=== PATIENT | female | born 1975 | race Caucasian/White ===

== ENCOUNTER 2016-08-17 16:13 | Emergency (ER) | payer OTHER ==
[~2016-08-17] VITALS: Ht 152.4 cm; Wt 66.0 kg
[~2016-08-17 16:13] MED LIST: BENA25TA8 PO; BUPR100CR PO; BUSP30TA PO; EFFE75CA PO; GABA600T PO; HYDR-3533 PO; PROT40TA PO; SUCR1S PO
[2016-08-17 16:19] VITALS: BP 147/71; PULSE 109; RESP 21; TEMP 98.1; O2SAT 99
[2016-08-17] MEDS ORDERED: PROT40TA PO (16:38)
[2016-08-17] MEDS ORDERED: LORA-474 PO (16:38)
[2016-08-17] MEDS ORDERED: EFFE150C PO (16:38)
[2016-08-17] MEDS ORDERED: CARA1TAB6 PO (16:38)
[2016-08-17] MEDS ORDERED: GABA800T PO (16:38)
[2016-08-17] MEDS ORDERED: BUSP30TA PO (16:38)
[2016-08-17] MEDS ORDERED: ONDANSETRON ODT 4 MG TAB PO ONE (17:00)
[2016-08-17] MEDS ORDERED: MORPHINE SULFATE 4 MG/ML INJ IM ONE (17:00)
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
[2016-08-17] MEDS ORDERED: ROBA750T PO (18:26)
[2016-08-17] MEDS ORDERED: TRAM50TA PO (18:29)
== END 2016-08-17 18:56 | disposition home or self-care (01) ==
LOC: NEPB 16:13
DX: S16.1XXA Strain of muscle, fascia and tendon at neck level, initial encounter (principal); S60.211A Contusion of right wrist, initial encounter; S60.819A Abrasion of unspecified wrist, initial encounter; S20.219A Contusion of unspecified front wall of thorax, initial encounter; M54.9 Dorsalgia, unspecified; V43.52XA Car driver injured in collision with other type car in traffic accident, initial encounter; Y93.9 Activity, unspecified; Y92.9 Unspecified place or not applicable; Y99.9 Unspecified external cause status
CPT/HCPCS: 70450; 71010; 72072; 72100; 72125; 73110; 96372; 99284; J2270

== ENCOUNTER 2016-08-27 10:47 | Emergency (ER) | payer OTHER ==
[~2016-08-27] VITALS: Ht 149.9 cm; Wt 633.0 kg
[~2016-08-27 10:47] MED LIST changes: -BENA25TA8 PO; -BUPR100CR PO; +CARA1TAB6 PO; +EFFE150C PO; -EFFE75CA PO; -GABA600T PO; +GABA800T PO; -HYDR-3533 PO; +LORA-474 PO; +ROBA750T PO; -SUCR1S PO; +TRAM50TA PO
[2016-08-27 11:05] VITALS: BP 137/94; PULSE 80; RESP 16; TEMP 98.5; O2SAT 99
[2016-08-27] MEDS ORDERED: SUMA100T2 PO (11:48)
[2016-08-27] MEDS ORDERED: HYDR-3516 PO (11:48)
[2016-08-27] MEDS ORDERED: SODIUM CHLOR 0.9% 1000 ML INJ 1,000 ML IV SCH (11:58)
[2016-08-27] MEDS ORDERED: MORPHINE SULFATE 4 MG/ML INJ IV PUSH ONE ×2 (12:00→13:30)
[2016-08-27] MEDS ORDERED: ONDANSETRON HCL 4 MG/2 ML VIAL IVP ONE (12:00)
[2016-08-27] MEDS ORDERED: SODIUM CHLORIDE 0.9% FLUSH 5 ML FLUSH IVF PRN (12:00)
[2016-08-27 12:09] LABS: BLOOD, URINE NEG (NEG); GLUCOSE,URINE NEG (NEG); KETONE, URINE TRACE mg/dL (NEG); NITRITE,URINE NEG (NEG); PH, URINE 6.5 (5.0-8.5)
[2016-08-27 12:11] LABS: METHOD OF COLLECTION CLEAN CATCH; URINE COLOR YELLOW (YELLW/STRAW)
[2016-08-27 12:13] LABS: BACTERIA, URINE MOD /hpf; COMMENT (UR) CULTURE INDICATED; COMMENT2 (UR) MUCOUS PRESENT; CULTURE IF INDICATED CULTURE INDICATED; WBC, URINE 0-2 /hpf (0-5)
[2016-08-27 12:42] VITALS: BP 140/72; PULSE 79; RESP 16; RESP 18; O2SAT 100; O2SAT 99
[2016-08-27 12:48] LABS: AUTOMATED NEUTROPHIL # 5.1 TH/MM3 (1.8-7.7); BASOPHIL # 0.3 TH/MM3 (0-0.2); BASOPHIL % 3.5 % (0.0-2.0); EOSINOPHIL # 0.1 TH/MM3 (0-0.4); EOSINOPHIL % 0.6 % (0.0-4.0); HEMATOCRIT 44.7 % (35.0-46.0); HEMO FLAGS DIFF FINAL; LYMPH % 25.1 % (9.0-44.0); LYMPHOCYTE # 2.2 TH/MM3 (1.0-4.8); MEAN CELL VOLUME 83.8 FL (80.0-100.0); MEAN CORPUSCULAR HEMOGLOBIN 28.1 PG (27.0-34.0); MEAN CORPUSCULAR HGB CONC 33.6 % (32.0-36.0); MONO % 10.9 % (0.0-8.0); NEUT % 59.9 % (16.0-70.0); PLATELET COUNT 412 TH/MM3 (150-450); RED BLOOD COUNT 5.33 MIL/MM3 (4.00-5.30); RED CELL DISTRIBUTION WIDTH 13.7 % (11.6-17.2); WHITE BLOOD COUNT 8.6 TH/MM3 (4.0-11.0)
[2016-08-27 12:53] LABS: CHLORIDE 106 MEQ/L (98-107); POTASSIUM 3.7 MEQ/L (3.5-5.1); SODIUM (NA) 145 MEQ/L (136-145)
[2016-08-27 12:57] LABS: ANION GAP 11 MEQ/L (5-15); BICARBONATE 28.4 MEQ/L (21.0-32.0); BLOOD UREA NITROGEN 11 MG/DL (7-18)
[2016-08-27 13:00] LABS: ALT (GPT) 15 U/L (10-53); AST (GOT) 9 U/L (15-37); GLOMERULAR FILTRATION RATE 100 ML/MIN (>89)
[2016-08-27 13:01] LABS: TOTAL BILIRUBIN ADULT 0.2 MG/DL (0.2-1.0)
[2016-08-27 13:02] LABS: ALKALINE PHOSPHATASE 43 U/L (45-117)
[2016-08-27] MEDS ORDERED: LORazepam 2 MG/ML VIAL IV PUSH ONE (13:30)
[2016-08-27 13:46] VITALS: BP 124/70; PULSE 88; RESP 16; O2SAT 98
--- NOTE | 2016-08-27 14:14 | PD ---
HPI Chief Complaint: Abdominal Pain Time Seen by Provider: 11:28 Travel History International Travel<30 days: No Contact w/Intl Traveler<30days: No Traveled to known affect area: No History of Present Illness HPI Patient is a 41-year-old female with a history of gastric sleeve as well as gastritis presents emergency Department with epigastric pain worsening over the past few months. Patient states she's followed by code official and was told that she has severe gastritis without any bleeding ulcers are also disease or mass. She states she has tried every unso-omb-pubybiv antacids was taken prescription antacids recently as well. States the pain is been gradually getting worse over the past few days but ultimately has been progressing for the past few months to year. Denies any blood in the emesis denies any blood in her stool. Denies any weight loss. Denies any fevers. States pain is sharp in quality. PFSH Past Medical History Anxiety: Yes Depression: Yes Diabetes: Yes (type 2) Patient Takes Glucophage: No Diminished Hearing: No Gastrointestinal Disorders: Yes (ALCOHOLIC GASTRITIS) Headaches: Yes Immunizations Current: Yes Migraines: Yes Tetanus Vaccination: > 5 Years ?: Not LMP: 08/20/16 Past Surgical History Abdominal Surgery: Yes (GASTRIC BAND) Cholecystectomy: Yes Other Surgery: Yes (BARIATRIC BREAST REDUCTION) Social History Alcohol Use: No (DENIES USE X 7 MONTHS (08/27/16)) Tobacco Use: No Substance Use: Yes (HX ETOH) Allergies-Medications (Allergen,Severity, Reaction): Coded Allergies: Penicillin (Unverified Allergy, Mild, rash, 08/27/16) Compazine (Unverified Allergy, Unknown, 08/27/16) Tetanus Toxoid (Verified Allergy, Unknown, 08/27/16) Nonsteroidal Anti-Inflammatory Agts (Verified Adverse Reaction, Severe, Gastritis, 08/27/16) Reported Meds & Prescriptions Reported Meds & Active Scripts Active [place] (Hydrocodone-Acetaminophen) 5-325 mg Tab 1 Tab PO Q8HR PRN Tramadol (Tramadol HCl) 50 Mg Tab 50 Mg PO Q6H PRN Reported Sumatriptan (Sumatriptan Succinate) 100 Mg Tab 100 Mg PO ONCE PRN If a satisfactory response has not been obtained at 2 hours, a second dose may be administered Hydrocodone-Acetaminophen 5-325 mg Tab 1 Tab PO Q6H PRN Gabapentin 800 Mg Tab 600 Mg PO TID Ativan (Lorazepam) 1 Mg Tab 1 Mg PO QID PRN Effexor XR 24 HR (Venlafaxine HCl) 150 Mg Cap 150 Mg PO DAILY Review of Systems Except as stated in HPI: all other systems reviewed are Neg Physical Exam Narrative GENERAL: Well-developed, well-nourished in mild discomfort. SKIN: Warm and dry. HEAD: Atraumatic. Normocephalic. EYES: Pupils equal and round. No scleral icterus. No injection or drainage. ENT: No nasal bleeding or discharge. Mucous membranes pink and moist. NECK: Trachea midline. No JVD. CARDIOVASCULAR: Regular rate and rhythm. No murmur appreciated. RESPIRATORY: No accessory muscle use. Clear to auscultation. Breath sounds equal bilaterally. GASTROINTESTINAL: Abdomen soft, non-tender, nondistended. Hepatic and splenic margins not palpable. Minimally tender in the epigastric area. No rebound no percussive tenderness. No tenderness at McBurney's point. Brice sign negative. Psoas obturator signs are negative. MUSCULOSKELETAL: No obvious deformities. No clubbing. No cyanosis. No edema. NEUROLOGICAL: Awake and alert. No obvious cranial nerve deficits. Motor grossly within normal limits. Normal speech. PSYCHIATRIC: Appropriate mood and affect; insight and judgment normal. Data Data Last Documented VS Orders Urinalysis - C+S If Indicated (08/27/16 11:29) Ed Urine Pregnancytest Poc (08/27/16 11:29) Complete Blood Count With Diff (08/27/16 11:58) Comprehensive Metabolic Panel (08/27/16 11:58) Lipase (08/27/16 11:58) Iv Access Insert/Monitor (08/27/16 11:58) Ecg Monitoring (08/27/16 11:58) Oximetry (08/27/16 11:58) Morphine Inj (Morphine Inj) (08/27/16 12:00) Ondansetron Inj (Zofran Inj) (08/27/16 12:00) Sodium Chlor 0.9% 1000 Ml Inj (Ns 1000 M (08/27/16 11:58) Sodium Chloride 0.9% Flush (Ns Flush) (08/27/16 12:00) Urine Culture (08/27/16 12:00) Morphine Inj (Morphine Inj) (08/27/16 13:30) Lorazepam Inj (Ativan Inj) (08/27/16 13:30) Labs MDM Medical Decision Making Medical Screen Exam Complete: Yes Emergency Medical Condition: Yes Differential Diagnosis Gastritis, gastroenteritis, pink otitis, cholecystitis unlikely, acute abdomen highly unlikely, ulcers, peptic ulcer disease. Narrative Course Patient was remedied emerged permit, she appears well and in some mild discomfort. She was given multiple pain medicines. CBC CMP and lipase are reassuring. She is beginning to feel better. Discussed with her need for follow-up with a primary care physician her code official and discussed return to ED criteria. Likely etiology of her pain is worsening gastritis and may need further interventions by her code official. Diagnosis Primary Impression: Acute abdominal pain Departure Forms: Tests/Procedures, Work Release Enter return to work date: Aug 30, 2016 Scripts Hydrocodone-Acetaminophen ([place])5-325 mg Tab1 Tab PO Q8HR PRN (PAIN) #10 TAB Ref 0 Prov:Kevin Lamb MD 08/27/16 Disposition: 01 DISCHARGE HOME Condition: Stable Kevin Lamb MD Aug 27, 2016 14:14 Mean Corpuscular Hemoglobin 33.6 % Concent Red Cell Distribution Width 13.7 % Platelet Count 412 TH/MM3 Mean Platelet Volume 7.6 FL Neutrophils (%) (Auto) 59.9 % Lymphocytes (%) (Auto) 25.1 % Monocytes (%) (Auto) 10.9 % Eosinophils (%) (Auto) 0.6 % Basophils (%) (Auto) 3.5 % Neutrophils # (Auto) 5.1 TH/MM3 Lymphocytes # (Auto) 2.2 TH/MM3 Monocytes # (Auto) 0.9 TH/MM3 Eosinophils # (Auto) 0.1 TH/MM3 Basophils # (Auto) 0.3 TH/MM3 CBC Comment DIFF FINAL Differential Comment Sodium Level 145 MEQ/L Potassium Level 3.7 MEQ/L Chloride Level 106 MEQ/L Carbon Dioxide Level 28.4 MEQ/L Anion Gap 11 MEQ/L Blood Urea Nitrogen 11 MG/DL Creatinine 0.65 MG/DL Estimat Glomerular Filtration 100 ML/MIN Rate Random Glucose 121 MG/DL Calcium Level 8.9 MG/DL Total Bilirubin 0.2 MG/DL Aspartate Amino Transf 9 U/L (AST/SGOT) Alanine Aminotransferase 15 U/L (ALT/SGPT) Alkaline Phosphatase 43 U/L Total Protein 6.9 GM/DL Albumin 3.6 GM/DL Lipase 163 U/L MDM Medical Decision Making Medical Screen Exam Complete: Yes Emergency Medical Condition: Yes Diagnosis Primary Impression: Acute abdominal pain Departure Forms: Tests/Procedures, Work Release Enter return to work date: Aug 30, 2016 Disposition: 01 DISCHARGE HOME Condition: Stable Kevin Lamb MD Aug 27, 2016 14:14
[2016-08-27] MEDS ORDERED: NORC5TAB PO (14:30)
== END 2016-08-27 15:02 | disposition home or self-care (01) ==
LOC: PHED 10:47
DX: R10.13 Epigastric pain (principal); E11.9 Type 2 diabetes mellitus without complications; Z98.84 Bariatric surgery status; Z87.19 Personal history of other diseases of the digestive system; Z86.69 Personal history of other diseases of the nervous system and sense organs; Z86.59 Personal history of other mental and behavioral disorders
CPT/HCPCS: 80053; 81001; 83690; 84703; 85025; 87086; 96361; 96374; 96375; 96376; 99284; J2060; J2270; J2405; J7030

== ENCOUNTER 2017-08-08 09:39 | Emergency (ER) | payer OTHER ==
[~2017-08-08] VITALS: Ht 149.9 cm; Wt 61.4 kg
[~2017-08-08 09:39] MED LIST changes: -BUSP30TA PO; -CARA1TAB6 PO; +HYDR-3516 PO; +NORC5TAB PO; -PROT40TA PO; -ROBA750T PO; +SUMA100T2 PO
[2017-08-08 09:45] VITALS: BP 129/71; PULSE 83; RESP 16; TEMP 98.1; O2SAT 100
[2017-08-08 09:58] VITALS: BP 119/73; PULSE 83; RESP 20; TEMP 98.3; O2SAT 100
--- NOTE | 2017-08-08 10:12 | PD ---
HPI Chief Complaint: Headache Time Seen by Provider: 10:09 Travel History International Travel<30 days: No Contact w/Intl Traveler<30days: No Traveled to known affect area: No History of Present Illness HPI Patient is a 42-year-old female presents emergency department for evaluation of headache, occipital and behind her left eye. Patient states she has had a history of headaches like this before but her Imitrex has not been working. She also states she took an oxycodone which she is prescribed for her low back pain which is chronic after an accident, she also states she recently had a Toradol shot as well as steroid injection is on a steroid taper for her low back pain. Patient denies any focalized weakness denies any visual difficulties , denies any chest pain shortness of breath abdominal pain but does endorse some nausea and vomiting. She states the pain is moderate to severe, location, context and associated signs and symptoms as above PFSH Past Medical History Anxiety: Yes Depression: Yes Diabetes: Yes (type 2) Diminished Hearing: No Gastrointestinal Disorders: Yes (GASTRITIS ) Headaches: Yes Medical other: Yes (CHRONIC BACK PROBLEMS ) Neurologic: Yes (MIGRAINES ) Psychiatric: Yes Immunizations Current: Yes Migraines: Yes Tetanus Vaccination: < 5 Years ?: Not Past Surgical History Abdominal Surgery: Yes (GASTRIC BAND) Cholecystectomy: Yes Hysterectomy: Yes Other Surgery: Yes (HERNIA) Social History Alcohol Use: No Tobacco Use: No Substance Use: No Allergies-Medications (Allergen,Severity, Reaction): Coded Allergies: penicillin G (Unverified Allergy, Mild, rash, 08/08/17) prochlorperazine (Unverified Allergy, Unknown, 08/08/17) tetanus toxoid, adsorbed (Unverified Allergy, Unknown, 08/08/17) diclofenac (Unverified Adverse Reaction, Severe, Gastritis, 08/08/17) etodolac (Unverified Adverse Reaction, Severe, Gastritis, 08/08/17) flurbiprofen (Unverified Adverse Reaction, Severe, Gastritis, 08/08/17) ibuprofen (Unverified Adverse Reaction, Severe, Gastritis, 08/08/17) indomethacin (Unverified Adverse Reaction, Severe, Gastritis, 08/08/17) ketoprofen (Unverified Adverse Reaction, Severe, Gastritis, 08/08/17) ketorolac (Unverified Adverse Reaction, Severe, Gastritis, 08/08/17) naproxen (Unverified Adverse Reaction, Severe, Gastritis, 08/08/17) oxaprozin (Unverified Adverse Reaction, Severe, Gastritis, 08/08/17) Reported Meds & Prescriptions Reported Meds & Active Scripts Active Reported Zanaflex (Tizanidine HCl) 2 Mg Cap 1 Mg PO HS Klonopin (Clonazepam) 1 Mg Tab 1 Mg PO TID Zofran (Ondansetron HCl) 4 Mg Tab 4 Mg PO Q6HR PRN Lamictal (Lamotrigine) 25 Mg Tab 50 Mg PO BID Prednisone 2.5 Mg Tab 2.5 Mg PO DAILY 14 Days Sumatriptan (Sumatriptan Succinate) 100 Mg Tab 100 Mg PO ONCE PRN If a satisfactory response has not been obtained at 2 hours, a second dose may be administered Hydrocodone-Acetaminophen 5-325 mg Tab 1 Tab PO Q6H PRN Gabapentin 800 Mg Tab 1,200 Mg PO DAILY Effexor XR 24 HR (Venlafaxine HCl) 150 Mg Cap 150 Mg PO BID Review of Systems Except as stated in HPI: all other systems reviewed are Neg Physical Exam Narrative GENERAL: Well-developed well-nourished in no obvious distress SKIN: Focused skin assessment warm/dry. HEAD: Atraumatic. Normocephalic. EYES: Pupils equal and round and reactive to light, 7-8 mm. No scleral icterus. No injection or drainage. ENT: No nasal bleeding or discharge. Mucous membranes pink and moist. NECK: Trachea midline. No JVD. CARDIOVASCULAR: Regular rate and rhythm. No murmur appreciated. RESPIRATORY: No accessory muscle use. Clear to auscultation. Breath sounds equal bilaterally. GASTROINTESTINAL: Abdomen soft, non-tender, nondistended. Hepatic and splenic margins not palpable. MUSCULOSKELETAL: No obvious deformities. No clubbing. No cyanosis. No edema. NEUROLOGICAL: Awake and alert. Cranial nerves II through XII are grossly intact and nonfocal, 5 out of 5 strength in all 4 extremities, cerebellar testing negative. PSYCHIATRIC: Appropriate mood and affect; insight and judgment normal. Data Data Last Documented VS Vital Signs Date Time Temp Pulse Resp B/P (MAP) Pulse Ox O2 Delivery O2 Flow Rate FiO2 08/08/17 12:03 08/08/17 09:58 98.3 83 20 100 Room Air Orders Orders Complete Blood Count With Diff (2/28/18 10:10) Basic Metabolic Panel (Bmp) (08/08/17 10:10) Ecg Monitoring (08/08/17 10:10) Iv Access Insert/Monitor (08/08/17 10:10) Oximetry (08/08/17 10:10) Sodium Chloride 0.9% Flush (Ns Flush) (08/08/17 10:15) Ketorolac Inj (Toradol Inj) (08/08/17 10:15) Diphenhydramine Inj (Benadryl Inj) (08/08/17 10:15) Metoclopramide Inj (Reglan Inj) (08/08/17 10:15) Ed Discharge Order (08/08/17 11:31) Labs Laboratory Tests Test 08/08/17 10:06 White Blood Count 9.3 TH/MM3 Red Blood Count 4.57 MIL/MM3 Hemoglobin 13.6 GM/DL Hematocrit 41.0 % Mean Corpuscular Volume 89.6 FL Mean Corpuscular Hemoglobin 29.7 PG Mean Corpuscular Hemoglobin Concent 33.1 % Red Cell Distribution Width 14.6 % Platelet Count 306 TH/MM3 Mean Platelet Volume 7.6 FL Neutrophils (%) (Auto) 45.3 % Lymphocytes (%) (Auto) 42.3 % Monocytes (%) (Auto) 10.9 % Eosinophils (%) (Auto) 1.2 % Basophils (%) (Auto) 0.3 % Neutrophils # (Auto) 4.2 TH/MM3 Lymphocytes # (Auto) 3.9 TH/MM3 Monocytes # (Auto) 1.0 TH/MM3 Eosinophils # (Auto) 0.1 TH/MM3 Basophils # (Auto) 0.0 TH/MM3 CBC Comment DIFF FINAL Differential Comment Blood Urea Nitrogen 15 MG/DL Creatinine 0.46 MG/DL Random Glucose 84 MG/DL Calcium Level 7.8 MG/DL Sodium Level 145 MEQ/L Potassium Level 3.7 MEQ/L Chloride Level 112 MEQ/L Carbon Dioxide Level 26.2 MEQ/L Anion Gap 7 MEQ/L Estimat Glomerular Filtration Rate 148 ML/MIN MDM Medical Decision Making Medical Screen Exam Complete: Yes Emergency Medical Condition: Yes Differential Diagnosis Acute on chronic headache, migraine headache, cluster headache, acute intracranial pathology highly unlikely Narrative Course Patient 42-year-old otherwise healthy female with a history of recurrent headaches presents emergency department with headache intractable to sumatriptan at home. States his headache is just like every other headache she never had only it is not getting better. Neurologic exam reassuring. I see no indication for helical imaging of her head and fact risk of radiation outweighs the pretest probability at this time. Patient was given Benadryl and Reglan as well as Toradol, and reassessment she is sleeping soundly, mother is at bedside. Basic labs are reassuring. On awakening patient states she still having moderate headache, but she feels well enough to go home. I discussed with her symptomatic management follow-up with her primary care physician and return to ED criteria. Diagnosis Primary Impression: Headache Disposition: 01 DISCHARGE HOME Condition: Stable Kevin Lamb MD Aug 08, 2017 10:12
[2017-08-08] MEDS ORDERED: ZOFR4TAB PO (10:13)
[2017-08-08] MEDS ORDERED: LAMO25 PO (10:13)
[2017-08-08] MEDS ORDERED: PRED2.5T PO (10:13)
[2017-08-08] MEDS ORDERED: CLON1 PO (10:13)
[2017-08-08] MEDS ORDERED: ZANA2CAP PO (10:13)
[2017-08-08] MEDS ORDERED: diphenhydrAMINE HCL 50 MG/ML VIAL IVP ONE (10:15)
[2017-08-08] MEDS ORDERED: METOCLOPRAMIDE HCL 10 MG/2 ML VIAL IVP ONE (10:15)
[2017-08-08] MEDS ORDERED: KETOROLAC TROMETHAMINE 30 MG/ML (IVP) VIAL IVP ONE (10:15)
[2017-08-08] MEDS ORDERED: SODIUM CHLORIDE 0.9% FLUSH 10 ML FLUSH IVF PRN (10:15)
[2017-08-08 10:47] LABS: AUTOMATED NEUTROPHIL # 4.2 TH/MM3 (1.8-7.7); BASOPHIL % 0.3 % (0.0-2.0); EOSINOPHIL # 0.1 TH/MM3 (0-0.4); EOSINOPHIL % 1.2 % (0.0-4.0); HEMOGLOBIN 13.6 GM/DL (11.6-15.3); LYMPH % 42.3 % (9.0-44.0); LYMPHOCYTE # 3.9 TH/MM3 (1.0-4.8); MEAN CELL VOLUME 89.6 FL (80.0-100.0); MEAN CORPUSCULAR HEMOGLOBIN 29.7 PG (27.0-34.0); MEAN CORPUSCULAR HGB CONC 33.1 % (32.0-36.0); MEAN PLATELET VOLUME 7.6 FL (7.0-11.0); MONO % 10.9 % (0.0-8.0); NEUT % 45.3 % (16.0-70.0); PLATELET COUNT 306 TH/MM3 (150-450); RED BLOOD COUNT 4.57 MIL/MM3 (4.00-5.30); RED CELL DISTRIBUTION WIDTH 14.6 % (11.6-17.2); WHITE BLOOD COUNT 9.3 TH/MM3 (4.0-11.0)
[2017-08-08 11:23] LABS: BICARBONATE 26.2 MEQ/L (21.0-32.0); CALCIUM 7.8 MG/DL (8.5-10.1); CREATININE 0.46 MG/DL (0.50-1.00)
== END 2017-08-08 12:03 | disposition home or self-care (01) ==
LOC: NEPC 09:39
DX: R51 Headache (principal); M54.5 Low back pain; G89.29 Other chronic pain; E11.9 Type 2 diabetes mellitus without complications; R11.2 Nausea with vomiting, unspecified
CPT/HCPCS: 80048; 85025; 96374; 96375; 99284; J1200; J1885; J2765